=== PATIENT | female | born 1950 | race Caucasian/White ===

== ENCOUNTER 2024-10-25 12:54 | Outpatient (AMB) | payer MEDICARE, SELFPAY ==
--- NOTE | 2024-10-25 13:01 | MHC.PC.OV ---
Vital Signs 10/25/24 13:07 Height 5 ft Weight 158 lb BMI 30.9 BP 151/74 H Blood Pressure Location Rt brachial Position Sitting Respiration 14 Pulse 88 Pulse Source Pulse Oximeter Temp 97.4 F Temp Source Temporal Artery Scan Pulse Oximetry (%) 97 Oxygen Delivery Method Room Air Intake Visit Reasons: establish care Abstract Searcher Required: No Accompanied by: Self / Same As Patient Allergies No Known Allergies Allergy (Verified 10/25/24 13:43) Medication List - Last Reconciled 10/25/24 by Jigna Moreland PA-C amlodipine 10 mg PO DAILY atorvastatin mg PO DAILY latanoprost 0.005% drps ophthalmic (eye) lorazepam (Ativan) 0.5 mg PO DAILY PRN losartan 100 mg PO DAILY multivitamin 1 tab PO DAILY Tobacco use date assessed: 10/25/24 Fall risk assessment: No Falls in past year Last assessed Fall Risk: 10/25/24 Dental Screening Dental Screen Date: 10/25/24 Did you have a dental visit in the last 12 months?: Yes Did you have a dental problem in the last 6 months where you did not have access to dental care?: No Was dental information given to patient?: Patient has dentist HPI establish care HPI Details The patient is a 74-year-old female presenting for the establishment of care with a new primary care provider. Her previous primary care was with a family medicine unit in [facility], with her last visit one year ago. She reports a history of multiple colonoscopies due to prior concerns for either Crohn's disease or ulcerative colitis; however, she has not had one since 2019, noting that she was having them regularly every couple of years when under her previous doctor's care. She has been asymptomatic and out of disease activity since prior to [facility]. Regarding mammograms, she was last due when she left [facility], approximately two years ago, but did not follow through with the appointment. Similarly, her last bone density scan was two years ago. Blood work was last conducted two years ago, and she understands the need for re-evaluation at this time. The patient has been on amlodipine for hypertension, atorvastatin for hyperlipidemia, eye drops for glaucoma, and losartan for blood pressure management. She has never been informed of potential side effects of amlodipine, such as peripheral edema, which she experiences mainly when sitting for extended periods, particularly on long car rides. The patient plans to travel internationally and allows her medications to lapse due to scheduling challenges, necessitating renewed prescriptions, particularly for losartan, which she requires before departure. Her hypertension was previously well-controlled, but she acknowledges a tendency for initial in-office elevations, a phenomenon she refers to as white coat syndrome. Social History - The patient lives independently and maintains an active lifestyle. - She travels extensively, even internationally, to visit family. - She has a family with one son in [place], [place], and another son in [place]. - Expresses some anxiety about flying, especially long-distance flights. [facility] Medical History (Updated 10/25/24 @ 13:48 by Jigna Moreland PA-C) Obesity with body mass index (BMI) of 30.0 to 39.9 Establishing care with new doctor, encounter for Seasonal allergies Crohn's disease Glaucoma Hyperlipidemia LDL goal <100 Essential hypertension Family History Mother BP (high blood pressure) Oral cancer Father BP (high blood pressure) Social History Housing: Apartment Alcohol intake: current Alcohol intake frequency: holidays/special occasions only Patient Tobacco Use Status: Never used Tobacco service: No Current occupational status: retired Cognitive needs: No Hearing needs: No Vision needs: Yes (rx glasses) Questionnaire PHQ-9 Over the last 2 weeks, how often have you been bothered by any of the following problems? 1. Little interest or pleasure in doing things: not at all 2. Feeling down, depressed, or hopeless: not at all 3. Trouble falling or staying asleep, or sleeping too much: not at all 4. Feeling tired or having little energy: not at all 5. Poor appetite or overeating: not at all 6. Feeling bad about yourself - or that you are a failure or have let yourself or your family down: not at all 7. Trouble concentrating on things, such as reading the newspaper or watching television: not at all 8. Moving or speaking so slowly that other people could have noticed. Or the opposite - being so fidgety or restless that you have been moving around a lot more than usual: not at all 9. Thoughts that you would be better off or of hurting yourself in some way: not at all Total score: 0 Depression Screening Interpretation: Negative Depression Screening Done: Yes 44699 - PHQ-9 Billing: Yes Source: Developed by Drs. Zafar Kim, Mechelle Estes, Elier Luque and colleagues, with an educational yola from [employer]. Thrive Questionnaire Date Thrive assessed: 10/25/24 I am a: Patient What is your living situation today?: I have a steady place to live Within the past 12 months, did the food you bought not last and you didn't have the money to get more?: Never true Within the past 12 months, did you worry whether your food would run out before you got money to buy more?: Never true Do you have trouble paying for medicines?: No Do you have trouble getting transportation to medical appointments?: No Do you have trouble paying your heating and electricity bill?: No Do you have trouble taking care of your child, family member or friend?: No Do you have trouble with day-to-day activities such as bathing, preparing meals, shopping, managing finances, etc.?: No Are you currently unemployed and looking for a job?: No Are you interested in more education?: No Please select the resources that you would like help with: None THRIVE Score: 0 AUDIT C Alcohol Use Questionnaire (AUDIT-C) 1. How often do you have a drink containing alcohol?: Monthly or less 2. How many drinks containing alcohol do you have on a typical day when you are drinking?: 1 or 2 3. How often do you have six or more drinks on one occasion?: Never Total Score: 1 Score Reviewed/Action Taken: No JEANNIE-7 AMB Questionnaire JEANNIE-7 Date JEANNIE - 7 assessed: 10/25/24 Feeling nervous, anxious, or on edge: 0 = Not at all Not being able to stop or control worryin = Not at all Worrying too much about different things: 0 = Not at all Trouble relaxin = Not at all Being so restless that it is hard to sit still: 0 = Not at all Becoming easily annoyed or irritable: 0 = Not at all Feeling afraid as if something awful might happen: 0 = Not at all Total JEANNIE-7 score (0-4 normal; 5-9 mild; 10-14 moderate; 15-21 severe): 0 Source: Developed by Drs. Zafar Kim, Mechelle Estes, Elier Luque and colleagues, with an educational yola from [employer]. JEANNIE-7 Assessment Billing JEANNIE-7 Assessment Tool: JEANNIE-7 Assessment 24152 Review of Systems Const Details: - Cardiovascular: Reports leg swelling when sitting for extended periods, particularly on long drives. - Respiratory: Denies shortness of breath. - Gastrointestinal: Denies abdominal pain or changes in bowel habits. - Neurological: Denies dizziness or syncope. - Ophthalmologic: Manages glaucoma with eye drops. - Musculoskeletal: Denies unexpected weight changes or leg pain. Physical exam (Primary Care) Vital Signs: Last Vital Signs Temp 97.4 F 10/25/24 13:07 Pulse 88 10/25/24 13:07 Resp 14 10/25/24 13:07 BP 167/72 H 10/25/24 13:07 Pulse Ox 97 10/25/24 13:07 Oxygen Delivery Method Room Air 10/25/24 13:07 Care Plan Goal for BP management: <130/90 her blood pressure and return in 1 month with blood pressure diary at that time we will discuss if we need to increase her blood pressure medications or add a new medication to her current regimen BMI result Body Mass Index 30.9 BMI Assessment/Plan discussion: High BMI High, discussed plan: lifestyle, weight reduction, dietary, physical activity and alcohol moderation Tobacco/Smoking Status: Tobacco use Status Tobacco use date assessed 10/25/24 10/25/24 13:14 Patient Tobacco Use Status Never used Tobacco 10/25/24 13:14 PHQ-9: PHQ-9 Score PHQ-9: Total score 0 10/25/24 13:14 Depression Screening Interpretation: Negative Thrive Assessment: Date of Thrive Assessment Date Thrive assessed 10/25/24 10/25/24 13:14 Const Other: Appearance: Alert. Oriented X3. No acute distress. Head: Normal external exam. Normocephalic. Atraumatic. Eyes: Pupils are equal, round, and reactive to light. Extraocular movements intact. Conjunctiva and sclera normal. Eyelids normal. Ears: External auditory canal normal. Tympanic membranes normal. Throat: Pharynx normal. Uvula midline. Moist mucous membranes. Neck: Normal inspection. Neck supple. Full range of motion. No adenopathy. Thyroid Normal. No meningeal signs. No neck mass noted. Cardiovascular: Blood pressure recorded at 151/74. Normal heart rate and rhythm. Heart sound normal. No murmurs noted. Pulses normal throughout. Respiratory: No respiratory distress. Painless inspiration. Breath sounds normal. No wheezes/rales/rhonchi noted. Chest nontender. No accessory muscle usage noted or decreased air movement noted. Abdomen: Soft and nontender. Bowel sounds normal in all 4 quadrants. No distention noted. No organomegaly noted. No visible injury noted. Back: No costovertebral angle tenderness. Full range of motion noted. Skin: Skin warm and dry. Normal skin color. Normal skin turgor. No rashes/lesions/lacerations noted. Extremities: No lower extremity edema noted, but patient reports ankle swelling after prolonged sitting, possibly related to amlodipine. Extremities exhibit normal range of motion. Extremities nontender. Neuro: Oriented X 3. No motor deficit. No sensory deficit. Reflexes normal. Coding Level of Care Code New Pt Level 4 (17341) Complex EM visit Add On G2211 Diagnoses Establishing care with new doctor, encounter for Z. Obesity with body mass index (BMI) of 30.0 to 39.9 E66.9 Seasonal allergies J30.2 Crohn's disease K50.90 Glaucoma H40.9 Hyperlipidemia LDL goal <100 E78.5 Essential hypertension I10 Additional Codes PHQ-9 - 29125 - PHQ-9 Billing: Yes ([id number]) JEANNIE-7 Assessment Billing - JEANNIE-7 Assessment Tool: JEANNIE-7 Assessment 07084 ([id number]) Time Spent (min) 40 Assessment & Plan Assessment & Plan (1) Establishing care with new doctor, encounter for: Code(s): Z76.89 - Persons encountering health services in other specified circumstances Category: Medical (2) Obesity with body mass index (BMI) of 30.0 to 39.9: Code(s): E66.9 - Obesity, unspecified Category: Medical Plan: Patient to improve her diet and exercise regimen. Condition is chronic and stable will continue to monitor. (3) Seasonal allergies: Code(s): J30.2 - Other seasonal allergic rhinitis Category: Medical Plan: Managed symptomatically with [id number]-iptumdw antihistamines, no acute exacerbation reported. Condition is chronic and stable will continue to monitor. (4) Crohn's disease: Code(s): K50.90 - Crohn's disease, unspecified, without complications Category: Medical (5) Glaucoma: Code(s): H40.9 - Unspecified glaucoma Category: Medical Plan: Continuation of current prescribed eye drops. Ophthalmology is to follow up as standard upon the patient's return. Condition is chronic and stable continue to monitor. (6) Hyperlipidemia LDL goal <100: Code(s): E78.5 - Hyperlipidemia, unspecified Category: Medical Plan: The management includes ongoing atorvastatin therapy. A lipid panel will be ordered to reassess current status during the next routine checkup. Condition is chronic and stable continue to monitor. (7) Essential hypertension: Code(s): I10 - Essential (primary) hypertension Category: Medical Plan: Management plan includes continued amlodipine with monitoring for any adverse effects such as leg swelling. She was advised to monitor blood pressure while traveling, address any persistent elevations, and follow up upon her return. Condition is chronic and stable continue to monitor. Plan Plan Patient was informed and verbally consented to the use of an ambient scribe for clinic note documentation during this visit. 1. Essential Hypertension Management plan includes continued amlodipine with monitoring for any adverse effects such as leg swelling. She was advised to monitor blood pressure while traveling, address any persistent elevations, and follow up upon her return. 2. Hyperlipidemia The management includes ongoing atorvastatin therapy. A lipid panel will be ordered to reassess current status during the next routine checkup. 3. Glaucoma Continuation of current prescribed eye drops. Ophthalmology is to follow up as standard upon the patient's return. 4. Crohn's Disease Due for gastroenterology refer to assess the need for a colonoscopy, particularly with a past history of polyps from her clinical history. 5. Seasonal Allergies Managed symptomatically with [id number]-hdv-djsudps antihistamines, no acute exacerbation reported. I discussed the patient's ongoing management of hypertension and the importance of regular monitoring, especially while traveling. I explained that amlodipine, while effective, may contribute to peripheral edema noted during longer car trips. We discussed potential adjustments post-travel should her blood pressure remain elevated. With the proposed international travel, we discussed preventative measures such as aspirin for clot prevention, given her cardiac profile and the duration of flights. I authorized prescription refills for her medications, specifically losartan, to ensure continuity of care while abroad. I emphasized reviewing her existing conditions such as hyperlipidemia, glaucoma, and the need for reassessment and referral back to gastroenterology for Crohn's management. We also explored anxiolytic options for flying, clarifying effects and expected sedation levels. The return follow-up was scheduled to evaluate her blood pressure regimen and manage her medications in light of travel experiences. Orders: Orders XR DEXA axial skeleton Today M81.0 - Age-related osteoporosis without current pathological fracture TSH reflex Free T4 Today Z00.00 - Encounter for general adult medical examination without abnormal findings C Reactive Protein Today Z00.00 - Encounter for general adult medical examination without abnormal findings Vitamin B12 and Folate Today Z00.00 - Encounter for general adult medical examination without abnormal findings Magnesium Today Z00.00 - Encounter for general adult medical examination without abnormal findings MM screening mammo BI Today Z12.31 - Encounter for screening mammogram for malignant neoplasm of breast Comprehensive [place]. Panel Fast Today Z00.00 - Encounter for general adult medical examination without abnormal findings Complete Blood Count Auto Diff Today Z00.00 - Encounter for general adult medical examination without abnormal findings Lipid Panel Today Z00.00 - Encounter for general adult medical examination without abnormal findings Liver Panel Today Z00.00 - Encounter for general adult medical examination without abnormal findings Hemoglobin A1c Today Z00.00 - Encounter for general adult medical examination without abnormal findings Vitamin D 25-OH Total Today Z00.00 - Encounter for general adult medical examination without abnormal findings Erythrocyte Sedimentation Rate Today Z00.00 - Encounter for general adult medical examination without abnormal findings Referrals Gastroenterology Referral Z12.11 - Encounter for screening for malignant neoplasm of colon Medications: New losartan 100 mg PO DAILY 90 tabs 1RF lorazepam (Ativan) 0.5 mg PO DAILY PRN 10 tabs 0RF anxiety Patient Instructions: - Take losartan as prescribed. - Continue all current medications as directed. - Monitor your blood pressure while traveling. - Use compression socks during long flights. - Consider taking aspirin while traveling to prevent clots. - Await calls for scheduling mammograms, bone scans, and gastroenterology appointments. - Try a low dose of the prescribed antianxiety medication at home before using it on the plane. - Return for follow-up after your trip to reassess blood pressure and medication refills.
[2024-10-25 13:07] VITALS: BP 151/74; PULSE 88; RESP 14; TEMP 36.3; O2SAT 97; BMI 30.9
== END 2024-10-25 13:51 | disposition home or self-care (01) ==
LOC: HO.HMCSH 12:54
PROVIDERS: PCP Internal Medicine; Visit Provider Physician Assistant Medical
DX: Z76.89 Persons encountering health services in other specified circumstances (principal); E66.9 Obesity, unspecified; J30.2 Other seasonal allergic rhinitis; K50.90 Crohn's disease, unspecified, without complications; H40.9 Unspecified glaucoma; E78.5 Hyperlipidemia, unspecified; I10 Essential (primary) hypertension

== ENCOUNTER → 2024-10-25 12:54 | Outpatient (BNVA) | payer MEDICARE, SELFPAY | PROVIDERS: PCP Internal Medicine; Visit Provider Physician Assistant Medical | DX: I10 Essential (primary) hypertension (principal); E78.5 Hyperlipidemia, unspecified; E66.9 Obesity, unspecified; J30.2 Other seasonal allergic rhinitis; K50.90 Crohn's disease, unspecified, without complications; H40.9 Unspecified glaucoma; M81.0 Age-related osteoporosis without current pathological fracture; Z76.89 Persons encountering health services in other specified circumstances | CPT/HCPCS: 96127; 99202 ==

== ENCOUNTER 2024-11-25 09:20 | Outpatient (REF) | payer MEDICARE, SELFPAY ==
[2024-11-25 10:19] LABS: MANUAL DIFF FLAG NO
[2024-11-25 10:25] LABS: Basophils Absolute Auto 0.1 X10*3/uL (0.0-0.2); Eosinophils Absolute Auto 0.3 X10*3/uL (0.0-0.4); Eosinophils Percent Auto 5.1 % (0-4); Hematocrit 41.3 % (37.0-47.0); Hemoglobin 13.8 g/dl (12.0-16.0); Imm Gran Abs Auto 0.02 X10*3/uL (0.00-0.03); Imm Gran Pct Auto 0.3 % (0.0-0.4); Lymphocytes Absolute Auto 2.4 X10*3/uL (1.2-4.9); Lymphocytes Percent Auto 37.7 % (20-40); Mean Corpuscular HGB Conc 33.4 g/dl (31.0-35.0); Mean Corpuscular Hemoglobin 29.9 pg (27.0-33.0); Mean Corpuscular Volume 89.6 fL (80.0-98.0); Mean Platelet Volume 10.5 fL (9.4-12.3); Monocytes Absolute Auto 0.5 X10*3/uL (0.1-1.2); Monocytes Percent Auto 8.6 % (2-11); Neutrophils Percent Auto 47.3 % (45-73); Platelet Count 257 X10*3/uL (160-400); Red Blood Count 4.61 X10*6/uL (4.20-5.50); Red Cell Distribution Width 12.5 % (11.0-16.0); White Blood Count 6.3 X10*3/uL (4.8-10.8)
[2024-11-25 10:36] LABS: Estimated Average Glucose 111 mg/dL; Hemoglobin A1C 133.3991 umol/L; Hemoglobin A1c % 5.5 % (<6.0)
[2024-11-25 11:01] LABS: Erythrocyte Sedimentation Rate 7 MM/HR (0-20)
[2024-11-25 11:03] LABS: Alanine Aminotransferase 32 U/L (0-31); Albumin Level 4.8 g/dL (3.5-5.0); Alkaline Phosphatase 65 U/L (39-117); Anion Gap 11 (12-20); Aspartate Amino Transferase 31 U/L (5-31); Bilirubin Direct 0.2 mg/dL (0.0-0.5); Bilirubin Total 0.7 mg/dL (0.0-1.0); Blood Urea Nitrogen 14 mg/dL (9-16); C Reactive Protein 0.22 mg/dL (< or = 0.50); Calcium 9.8 mg/dL (8.4-10.2); Carbon Dioxide 30 mmol/L (22-29); Chloride 101 mmol/L (96-108); Cholesterol 200 mg/dL (<200); Estimated Glomerular Filt Rate > 60; Glucose Fasting 94 mg/dL (60-99); HDL Cholesterol 54 mg/dL (>40); LDL Cholesterol Calculated 97 mg/dL (<100); Magnesium 1.8 mg/dL (1.6-2.6); Potassium 4.1 mmol/L (3.3-5.1); Sodium 138 mmol/L (135-145); Total Protein 7.6 g/dL (6.5-8.0); Triglycerides 247 mg/dL (<150)
[2024-11-25 11:21] LABS: TSH reflex Free T4 2.92 uIU/mL (0.32-4.0); Vitamin D 25-OH Total 32.6 ng/mL (>30)
[2024-11-25 11:27] LABS: Folate 14.3 ng/mL (> or = 4.0); Vitamin B12 674 pg/mL (200-900)
== END 2024-11-25 09:21 | disposition home or self-care (01) ==
LOC: HO.HMGCLDS 09:20
PROVIDERS: Visit Provider Physician Assistant Medical
DX: Z00.00 Encounter for general adult medical examination without abnormal findings (principal); Z13.1 Encounter for screening for diabetes mellitus; Z13.6 Encounter for screening for cardiovascular disorders
CPT/HCPCS: 36415; 80053; 80061; 80076; 82248; 82306; 82607; 82746; 83036; 83735; 84443; 85025; 85652; 86140

== ENCOUNTER 2024-12-19 13:30 | Outpatient (REF) | payer MEDICARE, SELFPAY ==
--- NOTE | ~2024-12-19 | MM_ITS ---
EXAMINATION: MM SCREENING DIGITAL BREAST TOMOSYNTHESIS, BILATERAL CLINICAL INFORMATION: Screening. Asymptomatic. COMPARISON: Mammography: Comparison is made with available priors TECHNIQUE: Digital breast mammography with tomosynthesis is performed in both the craniocaudal and mediolateral oblique views along with computer-aided detection (CAD). FINDINGS: The breasts are heterogeneously dense, which may obscure small masses (ACR BI-RADS breast composition Category c). Left marker clip. There are no significant masses, abnormal calcifications, or other abnormalities. MM/MM tomosynthesis screening BI IMPRESSION: No mammographic evidence of malignancy. ASSESSMENT: BI-RADS BI-RADS 1 - Negative RECOMMENDATION: Routine annual mammography screening. 1 year F/U This examination should not preclude the clinical evaluation of a suspicious palpable abnormality. This patient's information was entered into a reminder system with a target due date for their next mammogram. Electronically signed by: Krystyna Moore DO 12/31/2024 04:51 PM EDT
--- NOTE | ~2024-12-19 | MM_ITS ---
EXAMINATION: DXA BONE DENSITY AXIAL HISTORY: M81.0 - Age-related osteoporosis without current pathological fracture TECHNIQUE: Life360 Dual energy absorptiometry (DEXA) of the lumbar spine, total left hip, and femoral neck was performed. COMPARISON: There are no prior studies for comparison. FINDINGS: The bone mineral density of the lumbar spine is 0.956 g/cm2, corresponding to a T-score of -1.9, and a Z-score of -0.2. This is indicative of osteopenia. The bone mineral density of the left total hip is 0.828 g/cm2, corresponding to a T-score of -1.4, and a Z-score of 0.3. This is indicative of osteopenia. The bone mineral density of the left femoral neck is 0.818 g/cm2, corresponding to a T-score of -1.6, and a Z-score of 0.3. This is indicative of osteopenia. FRACTURE RISK: The FRAX index suggests a risk of major osteoporotic fracture of 19.8%, and of hip fracture 10.3%. MM/XR DEXA axial skeleton IMPRESSION: Based on bone mineral density, and according to World Health Organization (WHO) criteria, the diagnosis is consistent with osteopenia. Statistically, 68% of repeat scans fall within 1 SD (+/- 0.010 g/cm2 for AP spine L1-L4) and 1 SD (+/- 0.012 g/cm2 for femur total) FRAX is a trademark of the [employer]'s [place] for Metabolic Bone Disease, a World Health Organization (WHO) Collaborating Center. Electronically signed by: Zafar Michel MD 12/19/2024 02:37 PM EDT
== END 2024-12-19 13:31 | disposition home or self-care (01) ==
LOC: HO.MAMMO 13:30
PROVIDERS: PCP Physician Assistant Medical; Visit Provider Physician Assistant Medical
DX: Z12.31 Encounter for screening mammogram for malignant neoplasm of breast (principal); M81.0 Age-related osteoporosis without current pathological fracture
CPT/HCPCS: 77063; 77067; 77080

== ENCOUNTER → 2024-12-19 13:45 | Outpatient (BNV) | payer MEDICARE, SELFPAY | PROVIDERS: PCP Physician Assistant Medical; Visit Provider Radiology Diagnostic Radiology | DX: E28.39 Other primary ovarian failure (principal) | CPT/HCPCS: 77080 ==

== ENCOUNTER 2024-12-23 10:24 | Outpatient (AMB) | payer MEDICARE, SELFPAY ==
[2024-12-23 10:39] VITALS: BP 152/80; PULSE 101; RESP 16; TEMP 36.6; O2SAT 96; BMI 29.5
--- NOTE | 2024-12-23 10:39 | A.OFFPC_ITS ---
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 Accompanied by: Self / Same As Patient Allergies Sulfa (Sulfonamide Antibiotics) Allergy (Mild, Verified 12/23/24 11:24) Rash Medication List - Last Reconciled 12/23/24 by Jigna Moreland PA-C amlodipine 10 mg PO DAILY atorvastatin mg PO DAILY latanoprost 0.005% drps ophthalmic (eye) losartan 100 mg PO DAILY multivitamin 1 tab PO DAILY timolol maleate 0.5% drps ophthalmic (eye) Tobacco use date assessed: 10/25/24 Fall risk assessment: No Falls in past year Last assessed Fall Risk: 12/23/24 Dental Screening Dental Screen Date: 12/23/24 Did you have a dental visit in the last 12 months?: Yes Did you have a dental problem in the last 6 months where you did not have access to dental care?: No Was dental information given to patient?: Patient has dentist HPI follow up HPI Details The patient is a 74-year-old female presenting for a follow-up visit. She has a history of hyperlipidemia, with recent blood work showing cholesterol levels at 200 mg/dL, which is within the desired range, although triglycerides were slightly elevated. The patient was fasting during the test, and dietary intake of carbohydrates was discussed as a potential factor for elevated triglycerides. The patient has been diagnosed with osteopenia, as indicated by her recent bone density test. Osteopenia is characterized by reduced bone density, increasing the risk of fractures, particularly in the hip and other large bones. The patient was informed about the importance of vitamin D and calcium intake, as well as engaging in weight-bearing exercises such as yoga or walking to manage this condition. Patient was also informed about Fosamax although reports in the past she was on this and did not do well with the medication had side effects therefore is not interested in restarting Fosamax at this time. She would like to try alternate natural options. The patient also has a history of hypertension, with a recent blood pressure reading of 126/67 mmHg during the visit. She monitors her blood pressure regularly at home, and it has been stable, although it was noted to be slightly elevated during a previous visit. The patient is currently on amlodipine for blood pressure management. Social History - Exercise: The patient engages in regul ar walking, often exceeding 10,000 steps per day, and has a walking partner. - Nutrition: The patient has been consum ing more vegetables and using chopsticks to slow down her eating pace. - Family: Recently traveled to [facility] wit h family, including her [id number], who is half [place]ijani and half [place]ien. [facility] Medical History (Updated 12/23/24 @ 11:31 by Jigna Moreland PA-C) Overweight with body mass index (BMI) of 29 to 29.9 in adult Pure hypercholesterolemia, unspecified Hypertriglyceridemia Osteopenia Establishing care with new doctor, encounter for Seasonal allergies Crohn's disease Glaucoma Hyperlipidemia LDL goal <100 Essential hypertension Family History Mother BP (high blood pressure) Oral cancer Father BP (high blood pressure) Social History Housing: Apartment Alcohol intake: current Alcohol intake frequency: holidays/special occasions only Patient Tobacco Use Status: Never used Tobacco service: No Current occupational status: retired Cognitive needs: No Hearing needs: No Vision needs: Yes (rx glasses) Questionnaire PHQ-9 Over the last 2 weeks, how often have you been bothered by any of the following problems? 1. Little interest or pleasure in doing things: not at all 2. Feeling down, depressed, or hopeless: not at all 3. Trouble falling or staying asleep, or sleeping too much: not at all 4. Feeling tired or having little energy: not at all 5. Poor appetite or overeating: not at all 6. Feeling bad about yourself - or that you are a failure or have let yourself or your family down: not at all 7. Trouble concentrating on things, such as reading the newspaper or watching television: not at all 8. Moving or speaking so slowly that other people could have noticed. Or the opposite - being so fidgety or restless that you have been moving around a lot more than usual: not at all 9. Thoughts that you would be better off or of hurting yourself in some way: not at all Total score: 0 Depression Screening Interpretation: Negative Depression Screening Done: Yes 90534 - PHQ-9 Billing: Yes Source: Developed by Drs. Zafar Kim, Mechelle Estes, Elier Luque and colleagues, with an educational yola from [employer]. Thrive Questionnaire Date Thrive assessed: 10/25/24 I am a: Patient What is your living situation today?: I have a steady place to live Within the past 12 months, did the food you bought not last and you didn't have the money to get more?: Never true Within the past 12 months, did you worry whether your food would run out before you got money to buy more?: Never true Do you have trouble paying for medicines?: No Do you have trouble getting transportation to medical appointments?: No Do you have trouble paying your heating and electricity bill?: No Do you have trouble taking care of your child, family member or friend?: No Do you have trouble with day-to-day activities such as bathing, preparing meals, shopping, managing finances, etc.?: No Are you currently unemployed and looking for a job?: No Are you interested in more education?: No Please select the resources that you would like help with: None THRIVE Score: 0 AUDIT C Alcohol Use Questionnaire (AUDIT-C) 1. How often do you have a drink containing alcohol?: Monthly or less 2. How many drinks containing alcohol do you have on a typical day when you are drinking?: 1 or 2 3. How often do you have six or more drinks on one occasion?: Never Total Score: 1 Score Reviewed/Action Taken: No JEANNIE-7 AMB Questionnaire JEANNIE-7 Date JEANNIE - 7 assessed: 10/25/24 Feeling nervous, anxious, or on edge: 0 = Not at all Not being able to stop or control worryin = Not at all Worrying too much about different things: 0 = Not at all Trouble relaxin = Not at all Being so restless that it is hard to sit still: 0 = Not at all Becoming easily annoyed or irritable: 0 = Not at all Feeling afraid as if something awful might happen: 0 = Not at all Total JEANNIE-7 score (0-4 normal; 5-9 mild; 10-14 moderate; 15-21 severe): 0 Source: Developed by Drs. Zafar Kim, Mechelle Estes, Elier Luque and colleagues, with an educational yola from [employer]. JEANNIE-7 Assessment Billing JEANNIE-7 Assessment Tool: JEANNIE-7 Assessment 34470 Review of Systems Const Details: - Cardiovascular: Denies chest pain, reports stable blood pressure readings at home. - Musculoskeletal: Reports increased physical activity with regular walking. Physical exam (Primary Care) Vital Signs: Last Vital Signs Temp 97.9 F 12/23/24 10:39 Pulse 101 H 12/23/24 10:39 Resp 16 12/23/24 10:39 BP 152/80 H 12/23/24 10:39 Pulse Ox 96 12/23/24 10:39 Oxygen Delivery Method Room Air 12/23/24 10:39 Care Plan Goal for BP management: <140/90 patient to continue amlodipine 10 mg, losartan 100 mg and keep blood pressure log and bring in her next visit. Patient reports that her blood pressure at home is 120 over 80s. BMI result Body Mass Index 29.5 BMI Assessment/Plan discussion: High BMI High, discussed plan: lifestyle, weight reduction, dietary, physical activity and alcohol moderation Tobacco/Smoking Status: Tobacco use Status Tobacco use date assessed 10/25/24 12/23/24 10:52 Patient Tobacco Use Status Never used Tobacco 12/23/24 10:52 PHQ-9: PHQ-9 Score PHQ-9: Total score 0 12/23/24 10:52 Depression Screening Interpretation: Negative Thrive Assessment: Date of Thrive Assessment Date Thrive assessed 10/25/24 12/23/24 10:52 Const Other: Appearance: Alert. Oriented X3. No acute distress. Head: Normal external exam. Normocephalic. Atraumatic. Eyes: Pupils are equal, round, and reactive to light. Extraocular movements intact. Conjunctiva and sclera normal. Eyelids normal. Throat: Pharynx normal. Uvula midline. Moist mucous membranes. Neck: Normal inspection. Neck supple. Full range of motion. Cardiovascular: Normal heart rate and rhythm. Blood pressure was a little bit high today at 152/80. Respiratory: No respiratory distress. Painless inspiration. Back: Full range of motion noted. Skin: Skin warm and dry. Normal skin color. Normal skin turgor. No rashes/lesions/lacerations noted. Extremities: Extremities exhibit normal range of motion. Neuro: Oriented X 3. No motor deficit. No sensory deficit. Reflexes normal. Results Reviewed Results Reviewed: - Labs: Cholesterol level at 200 mg/dL, triglycerides slightly elevated. - Tests: Bone density test indicating osteopenia. Coding Level of Care Code Est Pt Level 4 (42211) Complex EM visit Add On G2211 Diagnoses Hypertriglyceridemia E78.1 Pure hypercholesterolemia, unspecified E78.00 Osteopenia M85.80 Essential hypertension I10 Overweight with body mass index (BMI) of 29 to 29.9 in adult E66.3; Z68.29 Additional Codes JEANNIE-7 Assessment Billing - JEANNIE-7 Assessment Tool: JEANNIE-7 Assessment 73914 ([id number]) PHQ-9 - 50289 - PHQ-9 Billing: Yes ([id number]) Assessment & Plan Assessment & Plan (1) Hypertriglyceridemia: Code(s): E78.1 - Pure hyperglyceridemia Category: Medical Plan: The patient's cholesterol levels are within the desired range, but triglycerides are slightly elevated. Dietary modifications, particularly reducing carbohydrate intake, were discussed to manage triglyceride levels. Condition is chronic and stable continue to monitor. (2) Pure hypercholesterolemia, unspecified: Code(s): E78.00 - Pure hypercholesterolemia, unspecified Category: Medical Plan: The patient's cholesterol levels are within the desired range, but triglycerides are slightly elevated. Dietary modifications, particularly reducing carbohydrate intake, were discussed to manage triglyceride levels. Condition is chronic and stable continue to monitor. (3) Osteopenia: Code(s): M85.80 - Other specified disorders of bone density and structure, unspecified site Category: Medical Plan: The patient was advised on lifestyle modifications, including increased intake of vitamin D and calcium, and engaging in weight-bearing exercises such as yoga or walking. The option of starting medication like Fosamax was discussed, but the patient prefers non-pharmacological interventions at this time. Condition is chronic and stable will continue to monitor. (4) Essential hypertension: Code(s): I10 - Essential (primary) hypertension Category: Medical Plan: The patient's blood pressure was measured at 150s over 80s mmHg during the visit, and she is currently on amlodipine. Although patient reports at home her blood pressures are 120s over 80s. She was advised to continue monitoring her blood pressure at home and report any persistent elevations. Condition is chronic and stable will continue to monitor. (5) Overweight with body mass index (BMI) of 29 to 29.9 in adult: Code(s): E66.3 - Overweight; Z68.29 - Body mass index [BMI] 29.0-29.9, adult Category: Medical Plan: Patient to continue improving diet and exercise regimen. Patient has lost 8 lb since her last visit BMI went from 30-29. Condition is chronic and stable continue to monitor. Plan Plan Patient was informed and verbally consented to the use of an ambient scribe for clinic note documentation during this visit. 1. Hyperlipidemia The patient's cholesterol levels are within the desired range, but triglycerides are slightly elevated. Dietary modifications, particularly reducing carbohydrate intake, were discussed to manage triglyceride levels. 2. Osteopenia The patient was advised on lifestyle modifications, including increased intake of vitamin D and calcium, and engaging in weight-bearing exercises such as yoga or walking. The option of starting medication like Fulsamax was discussed, but the patient prefers non-pharmacological interventions at this time. 3. Hypertension The patient's blood pressure was measured at 126/67 mmHg during the visit, and she is currently on amlodipine. She was advised to continue monitoring her blood pressure at home and report any persistent elevations. During the visit, we discussed the patient's hyperlipidemia, noting that her cholesterol levels are within the desired range, but triglycerides are slightly elevated. I advised her on dietary modifications to manage triglyceride levels. We also reviewed her osteopenia diagnosis, emphasizing the importance of vitamin D and calcium intake, and engaging in weight-bearing exercises. The option of starting Fulsamax was presented, but the patient prefers non-pharmacological interventions. Regarding her hypertension, I recommended continued home monitoring of blood pressure and to report any persistent elevations. Patient Instructions: - Monitor blood pressure at home regularly and report any persistent elevations. - Follow a diet low in carbohydrates to manage triglyceride levels. - Increase intake of vitamin D and calcium through diet or supplements. - Engage in weight-bearing exercises such as yoga or walking regularly. - Consider non-pharmacological interventions for osteopenia management.
== END 2024-12-23 11:25 | disposition home or self-care (01) ==
LOC: HO.HMCSH 10:24
PROVIDERS: PCP Physician Assistant Medical; Visit Provider Physician Assistant Medical
DX: E78.1 Pure hyperglyceridemia (principal); E78.00 Pure hypercholesterolemia, unspecified; M85.80 Other specified disorders of bone density and structure, unspecified site; I10 Essential (primary) hypertension; E66.3 Overweight; Z68.29 Body mass index [BMI] 29.0-29.9, adult

== ENCOUNTER → 2024-12-23 10:24 | Outpatient (BNVA) | payer MEDICARE, SELFPAY | PROVIDERS: PCP Physician Assistant Medical; Visit Provider Physician Assistant Medical | DX: E78.1 Pure hyperglyceridemia (principal); E78.00 Pure hypercholesterolemia, unspecified; I10 Essential (primary) hypertension; E66.3 Overweight; Z68.29 Body mass index [BMI] 29.0-29.9, adult; M85.80 Other specified disorders of bone density and structure, unspecified site | CPT/HCPCS: 96127; 99212 ==

== ENCOUNTER 2025-01-08 12:57 | Outpatient (AMB) | payer MEDICARE, SELFPAY ==
[2025-01-08 12:59] VITALS: BP 170/82; PULSE 80; RESP 17; TEMP 36.8; O2SAT 98; BMI 29.1
--- NOTE | 2025-01-08 12:59 | MHC.PC.OV ---
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 Accompanied by: Self / Same As Patient Allergies pistachio nut Allergy (Mild, Verified 01/08/25 13:28) Swelling Sulfa (Sulfonamide Antibiotics) Allergy (Mild, Verified 01/08/25 13:28) Rash Medication List - Last Reconciled 01/08/25 by Jigna Moreland PA-C amlodipine 10 mg PO DAILY atorvastatin mg PO DAILY latanoprost 0.005% drps ophthalmic (eye) losartan 100 mg PO DAILY multivitamin 1 tab PO DAILY omega-3 acid ethyl esters 1 cap PO BID timolol maleate 0.5% drps ophthalmic (eye) Tobacco use date assessed: 10/25/24 Fall risk assessment: No Falls in past year Last assessed Fall Risk: 01/08/25 Dental Screening Dental Screen Date: 12/23/24 Did you have a dental visit in the last 12 months?: Yes Did you have a dental problem in the last 6 months where you did not have access to dental care?: No Was dental information given to patient?: Patient has dentist HPI insect bite on back HPI Details The patient is a 74-year-old female presenting with concerns about a skin lesion and follow-up for hypertension management. The patient reports a history of seborrheic keratosis, with regular dermatological evaluations every six months. She is experiencing an itchy, rough lesion on her back, which is difficult for her to see and has been irritating her. The lesion appears red, likely due to irritation from scratching or rubbing. The patient has a history of osteopenia, as indicated by a recent bone scan. The patient also has a history of hypertension, with a recent blood pressure reading of 130/70 mmHg, which is consistent with her usual home measurements. She reports adherence to her antihypertensive medication regimen. [facility] Medical History (Updated 01/08/25 @ 13:32 by Jigna Moreland PA-C) Seborrheic keratosis Overweight with body mass index (BMI) of 29 to 29.9 in adult Pure hypercholesterolemia, unspecified Hypertriglyceridemia Osteopenia Establishing care with new doctor, encounter for Seasonal allergies Crohn's disease Glaucoma Hyperlipidemia LDL goal <100 Essential hypertension Family History Mother BP (high blood pressure) Oral cancer Father BP (high blood pressure) Social History Housing: Apartment Alcohol intake: current Alcohol intake frequency: holidays/special occasions only Patient Tobacco Use Status: Never used Tobacco service: No Current occupational status: retired Cognitive needs: No Hearing needs: No Vision needs: Yes (rx glasses) Questionnaire PHQ-9 Over the last 2 weeks, how often have you been bothered by any of the following problems? 1. Little interest or pleasure in doing things: not at all 2. Feeling down, depressed, or hopeless: not at all 3. Trouble falling or staying asleep, or sleeping too much: not at all 4. Feeling tired or having little energy: not at all 5. Poor appetite or overeating: not at all 6. Feeling bad about yourself - or that you are a failure or have let yourself or your family down: not at all 7. Trouble concentrating on things, such as reading the newspaper or watching television: not at all 8. Moving or speaking so slowly that other people could have noticed. Or the opposite - being so fidgety or restless that you have been moving around a lot more than usual: not at all 9. Thoughts that you would be better off or of hurting yourself in some way: not at all Total score: 0 Depression Screening Interpretation: Negative Depression Screening Done: Yes 44331 - PHQ-9 Billing: Yes Source: Developed by Drs. Zafar Kim, Mechelle Estes, Elier Luque and colleagues, with an educational yola from [employer]. Thrive Questionnaire Date Thrive assessed: 10/25/24 I am a: Patient What is your living situation today?: I have a steady place to live Within the past 12 months, did the food you bought not last and you didn't have the money to get more?: Never true Within the past 12 months, did you worry whether your food would run out before you got money to buy more?: Never true Do you have trouble paying for medicines?: No Do you have trouble getting transportation to medical appointments?: No Do you have trouble paying your heating and electricity bill?: No Do you have trouble taking care of your child, family member or friend?: No Do you have trouble with day-to-day activities such as bathing, preparing meals, shopping, managing finances, etc.?: No Are you currently unemployed and looking for a job?: No Are you interested in more education?: No Please select the resources that you would like help with: None THRIVE Score: 0 AUDIT C Alcohol Use Questionnaire (AUDIT-C) 1. How often do you have a drink containing alcohol?: Monthly or less 2. How many drinks containing alcohol do you have on a typical day when you are drinking?: 1 or 2 3. How often do you have six or more drinks on one occasion?: Never Total Score: 1 Score Reviewed/Action Taken: No JEANNIE-7 AMB Questionnaire JEANNIE-7 Date JEANNIE - 7 assessed: 10/25/24 Feeling nervous, anxious, or on edge: 0 = Not at all Not being able to stop or control worryin = Not at all Worrying too much about different things: 0 = Not at all Trouble relaxin = Not at all Being so restless that it is hard to sit still: 0 = Not at all Becoming easily annoyed or irritable: 0 = Not at all Feeling afraid as if something awful might happen: 0 = Not at all Total JEANNIE-7 score (0-4 normal; 5-9 mild; 10-14 moderate; 15-21 severe): 0 Source: Developed by Drs. Zafar Kim, Mechelle Estes, Elier Luque and colleagues, with an educational yola from [employer]. JEANNIE-7 Assessment Billing JEANNIE-7 Assessment Tool: JEANNIE-7 Assessment 44691 Review of Systems Const Details: - Dermatological: Reports itchy, rough lesion on the back - Cardiovascular: Denies chest pain or dizziness Physical exam (Primary Care) Vital Signs: Last Vital Signs Temp 98.2 F 01/08/25 12:59 Pulse 80 01/08/25 12:59 Resp 17 01/08/25 12:59 BP 170/82 H 01/08/25 12:59 Pulse Ox 98 01/08/25 12:59 Oxygen Delivery Method Room Air 01/08/25 12:59 Care Plan Goal for BP management: <140/90 at Goal BMI result Body Mass Index 29.1 BMI Assessment/Plan discussion: High BMI High, discussed plan: lifestyle, weight reduction, dietary, physical activity and alcohol moderation Tobacco/Smoking Status: Tobacco use Status Tobacco use date assessed 10/25/24 01/08/25 13:10 Patient Tobacco Use Status Never used Tobacco 01/08/25 13:10 PHQ-9: PHQ-9 Score PHQ-9: Total score 0 01/08/25 13:10 Depression Screening Interpretation: Negative Thrive Assessment: Date of Thrive Assessment Date Thrive assessed 10/25/24 01/08/25 13:10 Const Other: Appearance: Alert. Oriented X3. No acute distress. Head: Normal external exam. Normocephalic. Atraumatic. Eyes: Pupils are equal, round, and reactive to light. Extraocular movements intact. Conjunctiva and sclera normal. Eyelids normal. Throat: Pharynx normal. Uvula midline. Moist mucous membranes. Neck: Normal inspection. Neck supple. Full range of motion. Cardiovascular: Normal heart rate and rhythm. Blood pressure recorded at 130/70. Respiratory: No respiratory distress. Painless inspiration. Back: Full range of motion noted. Presence of keratosis with a red lesion noted, likely irritated from scratching. Skin: Skin warm and dry. Normal skin color. Normal skin turgor. Presence of keratosis with a red lesion noted, likely irritated from scratching. No other rashes/lesions/lacerations noted. Extremities: Extremities exhibit normal range of motion. Results Reviewed Results Reviewed: - Imaging: Mammogram normal, Bone scan showed osteopenia Coding Level of Care Code Est Pt Level 4 (98613) Complex EM visit Add On G2211 Diagnoses Seborrheic keratosis L82.1 Essential hypertension I10 Osteopenia M85.80 Additional Codes JEANNIE-7 Assessment Billing - JEANNIE-7 Assessment Tool: JEANNIE-7 Assessment 19331 ([id number]) PHQ-9 - 62055 - PHQ-9 Billing: Yes ([id number]) Assessment & Plan Assessment & Plan (1) Seborrheic keratosis: Code(s): L82.1 - Other seborrheic keratosis Category: Medical Plan: The patient was advised to apply a topical steroid to the irritated lesion on her back, which is consistent with seborrheic keratosis. She will monitor for any changes in redness or spreading and return if symptoms worsen. (2) Essential hypertension: Code(s): I10 - Essential (primary) hypertension Category: Medical Plan: The patient's blood pressure was measured at 130/70 mmHg, which aligns with her home readings. She will continue her current antihypertensive medication regimen and follow up in three months for blood pressure monitoring. (3) Osteopenia: Code(s): M85.80 - Other specified disorders of bone density and structure, unspecified site Category: Medical Plan: The patient was informed about her osteopenia diagnosis from a recent bone scan and will continue with regular monitoring. Plan Plan Patient was informed and verbally consented to the use of an ambient scribe for clinic note documentation during this visit. 1. Seborrheic Keratosis The patient was advised to apply a topical steroid to the irritated lesion on her back, which is consistent with seborrheic keratosis. She will monitor for any changes in redness or spreading and return if symptoms worsen. 2. Hypertension The patient's blood pressure was measured at 130/70 mmHg, which aligns with her home readings. She will continue her current antihypertensive medication regimen and follow up in three months for blood pressure monitoring. 3. Osteopenia The patient was informed about her osteopenia diagnosis from a recent bone scan and will continue with regular monitoring. I discussed with the patient the management of her seborrheic keratosis, recommending the use of a topical steroid to alleviate irritation. We reviewed her blood pressure management, confirming that her current regimen is effective, and planned a follow-up in three months. I also informed her about the osteopenia diagnosis and the importance of ongoing monitoring. Patient Instructions: - Apply topical steroid to the irritated lesion on your back as needed. - Monitor the lesion for any changes in redness or spreading and return if symptoms worsen. - Continue your current blood pressure medication and follow up in three months. - Be aware of your osteopenia diagnosis and continue with regular monitoring.
[2025-01-08 13:26] VITALS: BP 130/70
== END 2025-01-08 13:26 | disposition home or self-care (01) ==
LOC: HO.HMCSH 12:57
PROVIDERS: PCP Physician Assistant Medical; Visit Provider Physician Assistant Medical
DX: L82.1 Other seborrheic keratosis (principal); I10 Essential (primary) hypertension; M85.80 Other specified disorders of bone density and structure, unspecified site

== ENCOUNTER → 2025-01-08 12:57 | Outpatient (BNVA) | payer MEDICARE, SELFPAY | PROVIDERS: PCP Physician Assistant Medical; Visit Provider Physician Assistant Medical | DX: I10 Essential (primary) hypertension (principal); M85.80 Other specified disorders of bone density and structure, unspecified site; L82.1 Other seborrheic keratosis | CPT/HCPCS: 96127; 99212 ==

== ENCOUNTER 2025-03-25 10:28 | Outpatient (AMB) | payer MEDICARE, SELFPAY ==
[2025-03-25 10:25] VITALS: BP 123/60; PULSE 93; RESP 16; TEMP 36.1; O2SAT 97; BMI 29.1
--- NOTE | 2025-03-25 10:25 | MHC.PC.OV ---
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 Accompanied by: Self / Same As Patient Allergies pistachio nut Allergy (Mild, Verified 03/25/25 16:56) Swelling Sulfa (Sulfonamide Antibiotics) Allergy (Mild, Verified 03/25/25 16:56) Rash Medication List - Last Reconciled 03/25/25 by Jigna Moreland PA-C amlodipine 10 mg PO DAILY atorvastatin mg PO DAILY hydrocortisone 2.5% 1 appl topical BID-TID PRN latanoprost 0.005% drps ophthalmic (eye) losartan 100 mg PO DAILY multivitamin 1 tab PO DAILY omega-3 acid ethyl esters 1 cap PO BID 90 days timolol maleate 0.5% drps ophthalmic (eye) Tobacco use date assessed: 03/25/25 Fall risk assessment: No Falls in past year Dental Screening Dental Screen Date: 03/25/25 Did you have a dental visit in the last 12 months?: Yes Did you have a dental problem in the last 6 months where you did not have access to dental care?: No Was dental information given to patient?: Patient has dentist HPI 3 month follow up HPI Details The patient is a 75-year-old female presenting with a three-month follow-up visit. The patient has a history of hyperlipidemia, with cholesterol levels noted to be slightly elevated during the visit. She was previously on [place]-3 supplements, which she discontinued about a month ago, and plans to resume them to help manage her cholesterol levels. The patient is also managing hypertension, with current medication including amlodipine and losartan. Her blood pressure readings have been stable, with a recent measurement of 123/63 mmHg, which is considered optimal. The patient has glaucoma and is using Timolol and Latanoprost eye drops for management. She reports a rash under her arms and inner thighs, which has been present for most of the summer. The rash is not itchy, and she suspects it may be related to a change in laundry detergent. A topical steroid, hydrocortisone, has been prescribed to alleviate the symptoms. During the physical examination, a heart murmur was detected, which had not been noted in previous visits. The patient denies any associated symptoms such as chest pain or dyspnea. Social History - Exercise: Patient engages in walking as a form of exercise. [facility] Medical History (Updated 03/25/25 @ 17:06 by Jigna Moreland PA-C) Contact dermatitis Heart murmur History of mammogram (~12/19/24) Seborrheic keratosis Overweight with body mass index (BMI) of 29 to 29.9 in adult Pure hypercholesterolemia, unspecified Hypertriglyceridemia Osteopenia (~12/19/24) Establishing care with new doctor, encounter for Seasonal allergies Crohn's disease Glaucoma Hyperlipidemia LDL goal <100 Essential hypertension Family History Mother BP (high blood pressure) Oral cancer Father BP (high blood pressure) Social History Housing: Apartment Alcohol intake: current Alcohol intake frequency: holidays/special occasions only Patient Tobacco Use Status: Never used Tobacco service: No Current occupational status: retired Cognitive needs: No Hearing needs: No Vision needs: Yes (rx glasses) Questionnaire PHQ-9 Over the last 2 weeks, how often have you been bothered by any of the following problems? 1. Little interest or pleasure in doing things: not at all 2. Feeling down, depressed, or hopeless: not at all 3. Trouble falling or staying asleep, or sleeping too much: not at all 4. Feeling tired or having little energy: not at all 5. Poor appetite or overeating: not at all 6. Feeling bad about yourself - or that you are a failure or have let yourself or your family down: not at all 7. Trouble concentrating on things, such as reading the newspaper or watching television: not at all 8. Moving or speaking so slowly that other people could have noticed. Or the opposite - being so fidgety or restless that you have been moving around a lot more than usual: not at all 9. Thoughts that you would be better off or of hurting yourself in some way: not at all Total score: 0 Depression Screening Interpretation: Negative Depression Screening Done: Yes 73570 - PHQ-9 Billing: Yes Source: Developed by Drs. Zafar Kim, Elier Funes and colleagues, with an educational yola from [employer]. Thrive Questionnaire Date Thrive assessed: 03/25/25 I am a: Patient What is your living situation today?: I have a steady place to live Within the past 12 months, did the food you bought not last and you didn't have the money to get more?: Never true Within the past 12 months, did you worry whether your food would run out before you got money to buy more?: Never true Do you have trouble paying for medicines?: No Do you have trouble getting transportation to medical appointments?: No Do you have trouble paying your heating and electricity bill?: No Do you have trouble taking care of your child, family member or friend?: No Do you have trouble with day-to-day activities such as bathing, preparing meals, shopping, managing finances, etc.?: No Are you currently unemployed and looking for a job?: No Are you interested in more education?: No Please select the resources that you would like help with: None THRIVE Score: 0 AUDIT C Alcohol Use Questionnaire (AUDIT-C) 1. How often do you have a drink containing alcohol?: Monthly or less 2. How many drinks containing alcohol do you have on a typical day when you are drinking?: 1 or 2 3. How often do you have six or more drinks on one occasion?: Never Total Score: 1 Score Reviewed/Action Taken: No JEANNIE-7 AMB Questionnaire JEANNIE-7 Date JEANNIE - 7 assessed: 03/25/25 Feeling nervous, anxious, or on edge: 0 = Not at all Not being able to stop or control worryin = Not at all Worrying too much about different things: 0 = Not at all Trouble relaxin = Not at all Being so restless that it is hard to sit still: 0 = Not at all Becoming easily annoyed or irritable: 0 = Not at all Feeling afraid as if something awful might happen: 0 = Not at all Total JEANNIE-7 score (0-4 normal; 5-9 mild; 10-14 moderate; 15-21 severe): 0 Source: Developed by Mechelle Carrillo Kurt Kroenke and colleagues, with an educational yola from [employer]. JEANNIE-7 Assessment Billing JEANNIE-7 Assessment Tool: JEANNIE-7 Assessment 92449 Review of Systems Const Details: - Cardiovascular: Denies chest pain, dyspnea, or syncope. - Dermatological: Reports rash under arms and inner thighs, non-pruritic. All systems reviewed & are unremarkable except as noted in HPI and below Physical exam (Primary Care) Vital Signs: Last Vital Signs Temp 97 F 03/25/25 10:25 Pulse 93 03/25/25 10:25 Resp 16 03/25/25 10:25 BP 123/60 03/25/25 10:25 Pulse Ox 97 03/25/25 10:25 Oxygen Delivery Method Room Air 03/25/25 10:25 Care Plan Goal for BP management: <140/90 at Goal BMI result Body Mass Index 29.1 BMI Assessment/Plan discussion: High BMI High, discussed plan: lifestyle, weight reduction, dietary, physical activity, alcohol moderation and other Tobacco/Smoking Status: Tobacco use Status Tobacco use date assessed 03/25/25 03/25/25 10:30 Patient Tobacco Use Status Never used Tobacco 03/25/25 10:30 PHQ-9: PHQ-9 Score PHQ-9: Total score 0 03/25/25 10:30 Depression Screening Interpretation: Negative Thrive Assessment: Date of Thrive Assessment Date Thrive assessed 03/25/25 03/25/25 10:30 Const Other: Appearance: Alert. Oriented X3. No acute distress. Head: Normal external exam. Normocephalic. Atraumatic. Eyes: Pupils are equal, round, and reactive to light. Extraocular movements intact. Conjunctiva and sclera normal. Eyelids normal. Ears: External auditory canal normal. Tympanic membranes normal. Throat: Pharynx normal. Uvula midline. Moist mucous membranes. Neck: Normal inspection. Neck supple. Full range of motion. No adenopathy. Thyroid Normal. No meningeal signs. No neck mass noted. Cardiovascular: Normal heart rate and rhythm. Heart sound normal. A heart murmur is noted. Pulses normal throughout. Respiratory: No respiratory distress. Painless inspiration. Breath sounds normal. No wheezes/rales/rhonchi noted. Chest nontender. No accessory muscle usage noted or decreased air movement noted. Abdomen: Soft and nontender. Bowel sounds normal in all 4 quadrants. No distention noted. No organomegaly noted. Back: Full range of motion noted. Skin: Skin warm and dry. Normal skin color. Normal skin turgor. Rash noted under arms and on inner thighs. No lacerations noted. Extremities: No lower extremity edema. Extremities exhibit normal range of motion. Neuro: Oriented X 3. No motor deficit. No sensory deficit. Reflexes normal. Results Reviewed Results Reviewed: - Labs: Hemoglobin A1c was 5.5% in November. - Labs: Cholesterol levels slightly elevated. Coding Level of Care Code Est Pt Level 4 (04782) Complex EM visit Add On G2211 Diagnoses Hyperlipidemia LDL goal <100 E78.5 Essential hypertension I10 Glaucoma H40.9 Contact dermatitis L25.9 Heart murmur R01.1 Additional Codes JEANNIE-7 Assessment Billing - JEANNIE-7 Assessment Tool: JEANNIE-7 Assessment 98435 ([id number]) PHQ-9 - 41692 - PHQ-9 Billing: Yes ([id number]) Time Spent (min) 50 Assessment & Plan Assessment & Plan (1) Hyperlipidemia LDL goal <100: Code(s): E78.5 - Hyperlipidemia, unspecified Category: Medical Plan: The patient will resume [place]-3 supplements to manage cholesterol levels, as they were previously effective. Coenzyme Q10 was discussed as an adjunctive therapy to support lipid management. (2) Essential hypertension: Code(s): I10 - Essential (primary) hypertension Category: Medical Plan: The patient's blood pressure is well-controlled with current medications, including amlodipine and losartan. No changes to the antihypertensive regimen are necessary at this time. (3) Glaucoma: Code(s): H40.9 - Unspecified glaucoma Category: Medical Plan: The patient continues to use Timolol and Latanoprost eye drops for glaucoma management. (4) Contact dermatitis: Code(s): L25.9 - Unspecified contact dermatitis, unspecified cause Category: Medical Plan: A topical steroid, hydrocortisone, has been prescribed to manage the rash. The patient is advised to monitor for improvement and return if symptoms worsen. (5) Heart murmur: Code(s): R01.1 - Cardiac murmur, unspecified Category: Medical Plan: An echocardiogram is ordered to evaluate the heart murmur detected during the examination. The patient is reassured that the murmur is mild and not associated with any symptoms. Plan Plan Patient was informed and verbally consented to the use of an ambient scribe for clinic note documentation during this visit. 1. Hyperlipidemia The patient will resume [place]-3 supplements to manage cholesterol levels, as they were previously effective. Coenzyme Q10 was discussed as an adjunctive therapy to support lipid management. 2. Hypertension The patient's blood pressure is well-controlled with current medications, including amlodipine and losartan. No changes to the antihypertensive regimen are necessary at this time. 3. Glaucoma The patient continues to use Timolol and Latanoprost eye drops for glaucoma management. 4. Contact Dermatitis A topical steroid, hydrocortisone, has been prescribed to manage the rash. The patient is advised to monitor for improvement and return if symptoms worsen. 5. Heart Murmur An echocardiogram is ordered to evaluate the heart murmur detected during the examination. The patient is reassured that the murmur is mild and not associated with any symptoms. During the visit, we discussed the management of hyperlipidemia with [place]-3 supplements and the potential use of Coenzyme Q10 as an adjunctive therapy. The patient's hypertension is well-controlled, and no changes to the current regimen are needed. For the rash, a topical steroid was prescribed, and the patient was advised to monitor for improvement. An echocardiogram was ordered to evaluate the newly detected heart murmur, and the patient was reassured about its mild nature. Orders: Orders CA echo transthoracic complete Today E78.00 - Pure hypercholesterolemia, unspecified, E78.1 - Pure hyperglyceridemia, E78.5 - Hyperlipidemia, unspecified, I10 - Essential (primary) hypertension, R01.1 - Cardiac murmur, unspecified Medications: New hydrocortisone 2.5% 1 appl topical BID-TID PRN 454 grams 1RF itching coenzyme Q10 (Co Q-10) 100 mg PO DAILY 90 caps 3RF multivit with min-folic acid 120 mcg (Vitafusion Women's Multi) 1 tab PO DAILY 90 tabs 1RF Changed From omega-3 acid ethyl esters 1 cap PO BID To omega-3 acid ethyl esters 1 cap PO BID 180 caps 3RF 90 days Patient Instructions: - Resume [place]-3 supplements as previously prescribed. - Apply hydrocortisone cream to the rash as directed. - Monitor the rash for improvement and contact the office if it worsens. - Follow up in three months for routine evaluation.
== END 2025-03-25 10:59 | disposition home or self-care (01) ==
LOC: HO.HMCSH 10:28
PROVIDERS: PCP Physician Assistant Medical; Visit Provider Physician Assistant Medical
DX: E78.5 Hyperlipidemia, unspecified (principal); I10 Essential (primary) hypertension; H40.9 Unspecified glaucoma; L25.9 Unspecified contact dermatitis, unspecified cause; R01.1 Cardiac murmur, unspecified

== ENCOUNTER → 2025-03-25 10:28 | Outpatient (BNVA) | payer MEDICARE, SELFPAY | PROVIDERS: PCP Physician Assistant Medical; Visit Provider Physician Assistant Medical | DX: I10 Essential (primary) hypertension (principal); E78.5 Hyperlipidemia, unspecified; R21 Rash and other nonspecific skin eruption; R01.1 Cardiac murmur, unspecified; H40.9 Unspecified glaucoma; L25.9 Unspecified contact dermatitis, unspecified cause; E78.00 Pure hypercholesterolemia, unspecified; E78.1 Pure hyperglyceridemia | CPT/HCPCS: 96127; 99212 ==

== ENCOUNTER → 2025-04-18 08:51 | Outpatient (REF) | payer MEDICARE, SELFPAY ==
--- NOTE | 2025-04-18 08:54 | CA_ITS ---
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 The visually estimated ejection fraction is between 65-70%. - There is moderate septal asymmetric hypertrophy. - No obvious valvular pathology seen on this study. Findings Left Ventricle Normal left ventricular cavity size. The left ventricular systolic function is normal. The visually estimated ejection fraction is between 65-70%. There is no evidence of regional wall motion abnormalities. Diastolic function is normal for age. There is moderate septal asymmetric hypertrophy. Right Ventricle Normal right ventricular cavity size and systolic function. Atria Both atria are normal in size. Aortic Valve There is a normal trileaflet aortic valve. There is no aortic valve stenosis. There is no aortic valve regurgitation. Mitral Valve The mitral valve appears normal. There is no mitral valve regurgitation. There is no mitral valve stenosis. Pulmonic Valve The pulmonic valve is likely normal. Tricuspid Valve There is no tricuspid valve regurgitation. Tricuspid regurgitation envelope is inadequate for calculation of right ventricular systolic pressure. Great Vessels The asc aorta is normal in size. Venous The inferior vena cava is normal in size and collapses greater than 50% with inspiration. Pericardium/Pleural There is no evidence of pericardial effusion. Prior Study Comparison No prior study available for comparison. Recommendations, Care & Conclusions No obvious valvular pathology seen on this study. Measurements 2D Linear Measurements IVSd: 1.33 0.6-0.9/0.6-1.0 cm LVIDd: 3.13 3.9-5.3/4.2-5.9 cm LVIDd Index: 1.90 2.4-3.2/2.2-3.1 cm/m2 LVIDs: 1.98 2.0-3.6 cm LVPWd: 0.73 0.7-1.1 cm LA Diam: 2.80 2.7-3.8/3.0-4.0 cm LAIDs Index: 1.70 1.5-2.3 cm/m2 LV Mass: 113.42 67-162/88-224 g LV Mass Index: 68.74 43-95/49-115 g/m2 LVOT Diam: 2.00 3.0+(-)1.3 cm 2D Systolic Function EF 4C: 66.80 >55% EF 2C: 69.80 >55% EF BiP: 69.50 >55% Mitral Valve MV Pk E: 0.67 MV PK A: 0.91 MV Decel Time: 197.00 E/A: 0.70 E'Lateral: 6.20 E'Medial: 4.90 E/E' Med: 13.70 E/E' Lat: 10.90 PHT: 58.00 MVA PHT: 3.79 Decel Howard: 3.41 Aortic Valve AoV Pk Sean: 1.24 AoV Pk Grad: 6.00 RICKEY: 2.89 LVOT LVOT Pk Sean: 1.14 LVOT Mn Sean: 0.74 LVOT VTI: 0.22 LVOT Pk Grad: 5.00 LVOT Mn Grad: 3.00 LVOT Diam: 2.00 LVOT Area: 3.14 Diastolic Function MV Pk E: 0.67 MV Pk A: 0.91 E/A: 0.70 E'Medial: 4.90 E/E' Med: 13.70 E' Laterial: 6.20 E/E' Lat: 10.90 Right Ventricle TAPSE (mm): 22.60 TVS' Sean: 14.70 Tricuspid Valve RA Press: 8.00 Great Vessels Aorta Sinus of Valsalva: 2.90 2.0-3.5 cm Ao Asc: 3.20 2.1-3.4 cm Pulmonary Valve PV Pk Sean: 1.30 Peak PV Grad: 7.00 Updated in Other Vendor System with Status of Final Rk Liu MD electronically signed on 04/19/2025 12:16:28 PM with status of Final
== END ==
LOC: HO.CARD 08:51
PROVIDERS: PCP Internal Medicine; Visit Provider Physician Assistant Medical
DX: R01.1 Cardiac murmur, unspecified (principal); I10 Essential (primary) hypertension; E78.5 Hyperlipidemia, unspecified; E78.1 Pure hyperglyceridemia; E78.00 Pure hypercholesterolemia, unspecified
CPT/HCPCS: 93306

== ENCOUNTER → 2025-04-18 08:54 | Outpatient (BNV) | payer MEDICARE, SELFPAY | PROVIDERS: PCP Internal Medicine; Visit Provider Internal Medicine | DX: I42.2 Other hypertrophic cardiomyopathy (principal) | CPT/HCPCS: 93306 ==

== ENCOUNTER 2025-04-23 14:24 | Outpatient (AMB) | payer MEDICARE, SELFPAY ==
--- NOTE | 2025-04-23 14:26 | MHC.OFFVIS ---
Vital Signs 04/23/25 14:27 Height 5 ft Weight 149 lb BMI 29.1 BP 118/70 Blood Pressure Location Rt brachial Position Sitting Pulse 94 Pulse Source Pulse Oximeter Pulse Oximetry (%) 98 Oxygen Delivery Method Room Air Intake Visit Reasons: colo screening Intake Note: New pt for recall colo screening + hx of Crohn's. Last colo 2019 per PCP. CC: C.O. intermittent GERD sx which are currently not treated and are primarily diet controlled. Pt denies any additional sx or concerns at this time. 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 female with past medical history of hypertension, hyperlipidemia, osteopenia, allergies, glaucoma, Crohn's disease is here today for pre colonoscopy screening.? Patient was sent to us by his PCP.? Last colonoscopy was in 2019. Patient was told that she has Crohn's disease. Currently she is not taking any medications for it. Patient is avoiding symptoms wound with diet. Patient reports occasional epigastric pain depending on what she eats. Patient is trying to avoid symptoms by controlling her dietary restrictions. Denies any family history of CRC.? Denies history of difficulty with sedation or anesthesia in the past.? Negative for history of sleep apnea.? Denies any history of renal, pulmonary, or hepatic disease.?? [facility] Medical History Thickened atrial septum Contact dermatitis Heart murmur History of mammogram (~12/19/24) Seborrheic keratosis Overweight with body mass index (BMI) of 29 to 29.9 in adult Pure hypercholesterolemia, unspecified Hypertriglyceridemia Osteopenia (~12/19/24) Establishing care with new doctor, encounter for Seasonal allergies Crohn's disease Glaucoma Hyperlipidemia LDL goal <100 Essential hypertension Surgical History H/O colonoscopy Family History Mother BP (high blood pressure) Oral cancer Father BP (high blood pressure) Social History Housing: Apartment Alcohol intake: current Alcohol intake frequency: holidays/special occasions only Patient Tobacco Use Status: Never used Tobacco service: No Current occupational status: retired Cognitive needs: No Hearing needs: No Vision needs: Yes (rx glasses) Review of Systems Const Denies weight gain and Denies weight loss ENT Reports no additional complaints, Denies dysphagia and Denies odynophagia Card Reports no additional complaints Resp Reports no additional complaints GI Denies abdominal pain, Denies belching, Denies melena, Denies bloating, Denies change in bowel habits, Denies dysphagia, Denies excessive flatus, Denies dyspepsia, Reports heartburn (Occasional), Denies diarrhea, Denies loose stools, Denies nausea, Denies odynophagia and Denies vomiting Reports no additional complaints Musc Reports no additional complaints Neuro Reports no additional complaints Psych Reports no additional complaints Endo Reports no additional complaints Physical Exam Vital Signs: Last Vital Signs Pulse 94 04/23/25 14:27 BP 118/70 04/23/25 14:27 Pulse Ox 98 04/23/25 14:27 Oxygen Delivery Method Room Air 04/23/25 14:27 BMI result Body Mass Index 29.1 Assessment & Plan Assessment & Plan (1) Screen for colon cancer: Code(s): Z12.11 - Encounter for screening for malignant neoplasm of colon (2) Crohn's disease: Code(s): K50.90 - Crohn's disease, unspecified, without complications Category: Medical Plan Patient denies any GI, cardiac or respiratory symptoms.? Occasional acid reflux depending on what she eats. Denies any issues with anesthesia in the past.? Denies any history of sleep apnea.? No history infectious diseases in the past or present.? Not on any anticoagulation therapy.? No family or personal history of colon cancer or polyps.? Patient denies melena, hematochezia, unintentional weight loss or ribbon like stools.? Discussed at length the pre-procedure,? prep, diet & medications as well as what to expect prior, during and after the procedure.?? Stressed the importance of good bowel prep.? Recommended the use of Vaseline or Calmoseptine OTC & baby wipes with bowel movements to promote comfort.? ?Patient verbalizes understanding and agrees to plan of care.? She was given the opportunity to ask questions and all questions answered.? We will see her after the procedure.? Orders: Orders Lactoferrin, Fecal, Quant. 04/23/25 K50.90 - Crohn's disease, unspecified, without complications C Reactive Protein 04/24/25 K50.90 - Crohn's disease, unspecified, without complications Calprotectin, Fecal 04/23/25 K50.90 - Crohn's disease, unspecified, without complications Erythrocyte Sedimentation Rate 04/24/25 K50.90 - Crohn's disease, unspecified, without complications Referrals GI Procedure Notification Z12.11 - Encounter for screening for malignant neoplasm of colon Medications: New bisacodyl (Dulcolax (bisacodyl)) take 4 tabs at noon the day before your colonoscopy 20 mg (4 x 5 mg) PO ONCE 4 tabs 0RF constipation 1 day Z12.11 - Encounter for screening for malignant neoplasm of colon polyethylene glycol 3350 (Miralax) As directed by gastroenterology department at [facility] 238 grams PO ONCE 238 grams 0RF Z12.11 - Encounter for screening for malignant neoplasm of colon Coding Level of Care Code New Pt Level 4 (74682) Diagnoses Screen for colon cancer Z12.11 Crohn's disease K50.90 Time Spent (min) 50 Comment 35 minutes spent with patient and additional 15 minutes spent reviewing her records
[2025-04-23 14:27] VITALS: BP 118/70; PULSE 94; O2SAT 98; BMI 29.1
== END 2025-04-23 15:04 | disposition home or self-care (01) ==
LOC: HO.HGI 14:25
PROVIDERS: PCP Physician Assistant Medical; Visit Provider Nurse Practitioner Family
DX: K50.90 Crohn's disease, unspecified, without complications (principal); Z01.818 Encounter for other preprocedural examination; Z12.11 Encounter for screening for malignant neoplasm of colon
CPT/HCPCS: 99204

== ENCOUNTER → 2025-04-23 14:24 | Outpatient (BNVA) | payer MEDICARE, SELFPAY | PROVIDERS: PCP Physician Assistant Medical; Visit Provider Nurse Practitioner Family | DX: Z01.818 Encounter for other preprocedural examination (principal); K50.90 Crohn's disease, unspecified, without complications | CPT/HCPCS: 99202 ==

== ENCOUNTER 2025-04-24 10:41 | Outpatient (REF) | payer MEDICARE, SELFPAY ==
[2025-05-01 13:23] LABS: Anti Nuclear Antibody Pattern Nuclear, Homogeneous; Anti Nuclear Antibody Screen POSITIVE (NEGATIVE); Anti Nuclear Antibody Titer 1:320 titer
== END 2025-04-24 10:42 | disposition home or self-care (01) ==
LOC: HO.HMGCLDS 10:41
PROVIDERS: Absent Provider Dermatology; PCP Physician Assistant Medical; Visit Provider Nurse Practitioner Family
DX: Z01.84 Encounter for antibody response examination (principal); K50.90 Crohn's disease, unspecified, without complications; L30.9 Dermatitis, unspecified
CPT/HCPCS: 36415; 85652; 86038; 86039; 86140